=== PATIENT | male | born 1980 | race American Indian/Alaskan Native ===

== ENCOUNTER 2019-03-20 14:13 | Emergency (ER) | payer OTHER ==
[2019-03-20 14:25] VITALS: BP 119/75; PULSE 67; RESP 16; TEMP 98; O2SAT 98
--- NOTE | 2019-03-20 15:44 | C.PDOC ---
History Of Present Illness 38-year-old male presents to the ED for evaluation of left knee pain which began earlier today. Patient states that he was walking when he accidentally twisted his left knee inward, causing immediate pain to the knee. Patient denies direct trauma/injuries to the area or extremity numbness/weakness. Time Seen by Provider: 03/20/19 14:22 Chief Complaint (Nursing): Lower Extremity Problem/Injury History Per: Patient History/Exam Limitations: no limitations Onset/Duration Of Symptoms: Hrs Current Symptoms Are (Timing): Still Present Additional History Per: Patient - Knee Description Of Injury: Twisted Past Medical History Reviewed: Historical Data, Nursing Documentation, Vital Signs Vital Signs: Last Vital Signs Temp 98 F 03/20/19 14:21 Pulse 67 03/20/19 14:21 Resp 16 03/20/19 14:21 BP 119/75 03/20/19 14:21 Pulse Ox 98 03/20/19 14:21 Primary Care Provider: Colby Britton - Medical History PMH: HTN Surgical History: No Surg Hx Family History: States: Unknown Family Hx - Social History Hx Alcohol Use: No Hx Substance Use: Yes - Immunization History Hx Tetanus Toxoid Vaccination: No Hx Influenza Vaccination: No Hx Pneumococcal Vaccination: No Review Of Systems Musculoskeletal: Positive for: Other (left knee pain ) Neurological: Negative for: Weakness, Numbness Physical Exam - Physical Exam Appears: Non-toxic, Other (in mild pain ) Skin: Normal Color, Warm, Dry Head: Atraumatic, Normacephalic Extremity: Normal ROM, Tenderness (at the medial aspect of left knee, on palpation ), No Calf Tenderness, Capillary Refill (less than 2 seconds ), Swelling (mild, left knee ), Other (negtive anterior and posterior drawer test) Pulses: Left Dorsalis Pedis: Normal, Right Dorsalis Pedis: Normal Neurological/Psych: Oriented x3, Normal Speech, Normal Cognition, Normal Sensation ED Course And Treatment O2 Sat by Pulse Oximetry: 98 (on RA) Pulse Ox Interpretation: Normal Progress Note: Left knee x-ray was ordered and reviewed, results are on remarkable. Tylenol PO given. Patient placed in a knee brace and instructed on how to use crutches. On reassessment, patient is resting comfortably, showing no signs of distress, and is stable for discharge. Patient will be prescribed NSAIDS and is advised to follow up with orthopedic care within 1 to 2 days for further evaluation. Disposition Counseled Patient/Family Regarding: Studies Performed, Diagnosis, Need For Followup, Rx Given - Disposition Referrals: Yogi Pruitt III, MD [Staff Provider] - Disposition: HOME/ ROUTINE Disposition Time: 16:00 Condition: STABLE Additional Instructions: FOLLOW UP WITH ORTHOPEDICS WITHIN 1 WEEK USE PAIN MEDICATION NEEDED RETURN TO ER IF SYMPTOMS WORSEN Prescriptions: Ibuprofen [Motrin Tab] 600 mg PO Q6 PRN #30 tab PRN Reason: fever/pain Instructions: Knee Sprain (DC) Forms: [employer] (Kyrgyz) Print Language: MONGOLIAN - Clinical Impression Clinical Impression: Left knee sprain - Scribe Statement The provider has reviewed the documentation as recorded by the Scribe (Lillian Colon) Provider Attestation: All medical record entries made by the Scribe were at my direction and personally dictated by me. I have reviewed the chart and agree that the record accurately reflects my personal performance of the history, physical exam, medical decision making, and the department course for this patient. I have also personally directed, reviewed, and agree with the discharge instructions and disposition.
--- NOTE | 2019-03-20 16:01 | RAD ---
PROCEDURE: Left Knee Radiographs. 3 Views. HISTORY: left knee pain COMPARISON: None available. FINDINGS: BONES: No acute displaced fracture. JOINTS: No dislocation. JOINT EFFUSION: Moderate to large suprapatellar joint effusion. OTHER FINDINGS: None. IMPRESSION: Moderate to large suprapatellar joint effusion. No acute displaced fracture or dislocation identified.
== END 2019-03-20 16:20 | disposition home or self-care (01) ==
LOC: C.ER 14:13
DX: S83.92XA Sprain of unspecified site of left knee, initial encounter (principal); X50.9XXA Other and unspecified overexertion or strenuous movements or postures, initial encounter; Y93.01 Activity, walking, marching and hiking